=== PATIENT | male | born 1985 | race Asian ===

== ENCOUNTER 2017-05-14 22:59 | Emergency (ER) | payer BC ==
[2017-05-14 23:41] LABS: #Basophils 0.1 thou/uL (0.0-0.2); #Eosinphils 0.6 thou/uL (0.0-0.7); #Lymphocytes 2.6 thou/uL (1.20-3.40); #Monocytes 0.4 thou/uL (0.11-0.59); #Neutrophils 3.8 thou/uL (1.40-6.50); %Lymphocytes 35.1 % (21.0-51.0); Mean Platelet Volume 6.2 fL (7.4-10.4); Red Blood Cell (RBC) Count 5.27 mill/uL (4.70-6.10); White Blood Cell (WBC) Count 7.4 thou/uL (4.8-10.8)
[2017-05-15 00:04] LABS: ALT (SGPT) 29 U/L (8-55); AST (SGOT) 21 U/L (5-34); Alkaline Phosphatase 70 U/L (40-150); Anion Gap 14 mmol/L (10-20); BUN (Urea Nitrogen) 13 mg/dL (8.9-20.6); Bilirubin, Total 0.3 mg/dL (0.2-1.2); Calc. Creatinine Clearance 0 mL/min (70-130); Calcium 9.9 mg/dL (7.8-10.44); Carbon Dioxide 27 mmol/L (22-29); Chloride 103 mmol/L (98-107); Estimated GFR-MDRD 83; Globulin 3.5 g/dL (2.4-3.5); Protein, Total 7.9 g/dL (6.0-8.3)
[2017-05-15 00:07] LABS: Troponin I Less than 0.010 ng/mL (< 0.028)
[2017-05-15] MEDS ORDERED: hydrALAZINE 25 MG TAB ONE (01:23)
[2017-05-15 01:56] LABS: Amphetamine Not Detected (NotDetected); Methadone Not Detected (NotDetected); Methamphetamine Not Detected (NotDetected)
--- NOTE | 2017-05-15 07:53 | RAD ---
TWO VIEWS OF THE CHEST: DATE: 05/15/17. COMPARISON: None. HISTORY: Headache. FINDINGS: No pneumothorax, pleural fluid, focal consolidation, or alveolar edema. Heart and mediastinal contou rs unremarkable. IMPRESSION: No acute findings. POS: [facility]
== END 2017-05-15 02:56 | disposition home or self-care (01) ==
LOC: ERS 22:59
DX: I10 Essential (primary) hypertension (principal); F17.210 Nicotine dependence, cigarettes, uncomplicated
CPT/HCPCS: 36415; 71020; 80053; 80306; 82553; 84484; 85025; 93005; 99406